=== PATIENT | female | born 1995 | race Caucasian/White ===

== ENCOUNTER 2018-02-02 13:42 | Emergency (ER) | payer OTHER ==
[2018-02-02] MEDS ORDERED: LIDOCAINE 4%/TETRACAINE 0.5%/EPI 0.18% 5 ML TOPICAL SOLN TOP ONE (14:27)
[2018-02-02] MEDS ORDERED: LIDOCAINE 1% INJ-PF (10 MG/ML) 30 ML SDV INJ ONE (14:31)
--- NOTE | 2018-02-02 14:37 | ER Document Report ---
ED Hand/Wrist Injury - General Chief Complaint: Finger Injury Stated Complaint: FINGER INJURY Time Seen by Provider: 02/02/18 13:48 Mode of Arrival: Ambulatory Information source: Patient Notes: 22-year-old female presents to ED for complaint of laceration to the left fifth finger. She states she was slicing bread at the [employer] when she sliced her finger. She denies any past medical history. She states her immunizations are up-to-date. She states she does drink maybe once a month but that is it. Patient's regular and unlabored speaking in full sentences walks with a even steady gait. TRAVEL OUTSIDE OF THE [place] IN LAST 30 DAYS: No - HPI Injury to: Small finger Onset: Just prior to arrival Where: Work Timing: Still present Quality of pain: Sharp, Throbbing Severity: Moderate Pain Level: 3 Context: Laceration - Related Data Allergies/Adverse Reactions: Penicillins Allergy (Verified 02/02/18 13:45) Past Medical History - General Information source: Patient - Social History Smoking Status: Never Smoker Cigarette use (# per day): No Chew tobacco use (# tins/day): No Smoking Education Provided: No Frequency of alcohol use: Occasional Drug Abuse: None Occupation: [employer] Lives with: Family Family History: Reviewed & Not Pertinent Patient has suicidal ideation: No Patient has homicidal ideation: No - Past Medical History Cardiac Medical History: Reports: None Pulmonary Medical History: Reports: None EENT Medical History: Reports: None Neurological Medical History: Reports: None Endocrine Medical History: Reports: Hx Diabetes Mellitus Type 2 Renal/ Medical History: Reports: None Malignancy Medical History: Reports: None GI Medical History: Reports: None Musculoskeletal Medical History: Reports None Skin Medical History: Reports None Psychiatric Medical History: Reports: Hx Depression Traumatic Medical History: Reports: None Infectious Medical History: Reports: None Surgical Hx: Negative Past Surgical History: Reports: None - Immunizations Immunizations up to date: Yes Hx Diphtheria, Pertussis, Tetanus Vaccination: Yes - 2017 Review of Systems - Review of Systems Constitutional: No symptoms reported EENT: No symptoms reported Cardiovascular: No symptoms reported Respiratory: No symptoms reported Gastrointestinal: No symptoms reported Genitourinary: No symptoms reported Female Genitourinary: No symptoms reported Musculoskeletal: No symptoms reported Skin: Other - Left fifth finger laceration tip Hematologic/Lymphatic: No symptoms reported Neurological/Psychological: No symptoms reported -: Yes All other systems reviewed and negative Physical Exam - Vital signs Vitals: Temp Pulse Resp BP Pulse Ox 98.6 F 74 20 144/62 H 97 02/02/18 13:48 02/02/18 13:48 02/02/18 13:48 02/02/18 13:48 02/02/18 13:48 Interpretation: Normal - General General appearance: Appears well, Alert - HEENT Head: Normocephalic, Atraumatic Eyes: Normal Pupils: PERRL - Respiratory Respiratory status: No respiratory distress Chest status: Nontender Breath sounds: Normal Chest palpation: Normal - Cardiovascular Rhythm: Regular Heart sounds: Normal auscultation Murmur: No - Abdominal Inspection: Normal Distension: No distension Bowel sounds: Normal Tenderness: Nontender Organomegaly: No organomegaly - Back Back: Normal, Nontender - Extremities General upper extremity: Normal inspection, Nontender, Normal color, Normal ROM , Normal temperature General lower extremity: Normal inspection, Nontender, Normal color, Normal ROM , Normal temperature, Normal weight bearing. No: Kenneth's sign - Neurological Neuro grossly intact: Yes Cognition: Normal Orientation: AAOx4 Pantera Coma Scale Eye Opening: Spontaneous Pantera Coma Scale Verbal: Oriented Pantera Coma Scale Motor: Obeys Commands Goldonna Coma Scale Total: 15 Speech: Normal Motor strength normal: LUE, RUE, LLE, RLE Sensory: Normal - Psychological Associated symptoms: Normal affect, Normal mood - Skin Skin Temperature: Warm Skin Moisture: Dry Skin Color: Normal Skin irregularity: Laceration Location of irregularity: Extremities - Left fifth finger tip Course - Vital Signs Vital signs: Temp Pulse Resp BP Pulse Ox 98.6 F 74 20 150/88 H 97 02/02/18 13:48 02/02/18 13:48 02/02/18 13:48 02/02/18 14:43 02/02/18 13:48 Procedures - Immobilization Left Finger 5th digit Time completed: 15:47 Pre-Proc Neuro Vasc Exam: Normal Immobilizer type: Finger protection Performed by: PCT Post-Proc Neuro Vasc Exam: Normal Alignment checked and good: No - Laceration/Wound Repair Left Finger 5th digit Time completed: 15:45 Wound length (cm): 3 Wound's Depth, Shape: Flap Laceration pre-procedure: Sterile PPE donned, Sterile drapes applied, Shur- Clens applied Anesthetic type: 1% Lidocaine Volume Anesthetic (mLs): 5 Wound explored: Contaminated Irrigated w/ Saline (mLs): 300 Wound Repaired With: Sutures Suture Size/Type: 4:0, Ethilon Number of Sutures: 6 Layer Closure?: No Post-procedure wound care: Sterile dressing applied, Splint applied Post-procedure NV exam normal: Yes Complications: No Discharge - Discharge Clinical Impression: Laceration of left index finger Qualifiers: Encounter type: initial encounter Damage to nail status: without damage Foreign body presence: without foreign body Qualified Code(s): S61.211A - Laceration without foreign body of left index finger without damage to nail, initial encounter Condition: Stable Disposition: HOME, SELF-CARE Instructions: Family Physicians / Practices Additional Instructions: Hand Laceration A laceration on the hand can present special problems. It may be difficult to keep the wound dry. Motion of the fingers can disturb the healing edges. Your work may involve exposure to damaging chemicals or water. Keep the wound clean and dry. If you can't keep the cut dry, undisturbed, and free of chemical exposure, please discuss this with the doctor. If any water or chemical gets onto the dressing, remove it, blot the wound dry, then apply a fresh bandage. Dressings should be changed every day. If you feel the stitches pulling as you move the hand, a splint or other form of protection is needed. If any signs of infection occur (swelling, redness, increasing tenderness, red streaks, tender lumps in the armpit, or fever), see the doctor immediately. SOAP CLEANSING: Gently wash the wound daily using a mild soap (like Ivory, Phisoderm, Neutrogena). Use warm water, rubbing gently until all debris, ooze, and crusting have been washed from the wound. Allow to dry briefly (about 10 minutes) after cleaning. Repeat this cleansing at least three times a day for the first two days and then once or twice a day. ANTIBIOTIC OINTMENT PROTECTION: Your wounds are such that dressing them is not practical or optional. After cleansing, you should apply a thin coating of antibiotic ointment ( Bacitracin, not Neosporin) to the wounds at least three times daily. This lessens infection risk, and may decrease the amount of scarring. Use a q-tip or dull butter knife, not your finger, to apply this ointment. Any debris or ooze which builds up in the ointment should be gently rubbed off with a sterile gauze pad. Harder crusting may need to be gently scrubbed off with a clean wash cloth with soap and warm water, perhaps applying a warm, wet wash cloth to the wound for ten minutes first. Development of redness, severe itching, or blistering may mean allergy to the ointment. See the doctor Doxycycline Doxycycline (Vibramycin, Doryx) is an antibiotic of the tetracycline family. This type of drug is useful for infections of the respiratory tract and genital tract, and is sometimes used for intestinal infections. Unlike most tetracyclines, doxycycline can be taken with food. It is longer acting, and (usually) less prone to side effects than regular tetracycline. Tetracycline antibiotics can stain immature teeth and SHOULD NOT BE TAKEN BY CHILDREN, NURSING MOTHERS, OR WOMEN. Tetracyclines can make you more prone to sunburn. Abdominal cramping, nausea, and diarrhea are occasional side effects. Women may experience vaginal yeast infections. Call the doctor at once if you develop hives, itching, shortness of breath , or lightheadedness. PROPHYLACTIC ANTIBIOTIC: The antibiotics which have been prescribed are designed to decrease the risk of infection. Only certain types of wounds benefit from this -- the typical cut, scrape, or burn DOES NOT require antibiotics. Of course, infection can still occur despite the use of prophylactic antibiotics. Your wound will heal with less chance of an infectious complication if you take the medication as directed. The most important dose is the FIRST dose, so don't delay filling the prescription! You have a protective splint on your finger that she can take on and off for protection to the laceration. You need to take this off 3 times a day to do your cleaning and bacitracin and dressing change. This is just a per intact you from hitting your finger on anything is not to keep your fingers straight. FOLLOW-UP CARE: Please return in __3___ days for an infection check and dressing change. Your sutures should be removed in ___10__ days. To facilitate a timely removal of your sutures, you may return to the Emergency Department at [facility]. You do not need to call for an appointment, but the best time to come in for suture removal is early in the morning. If you have been referred to another physician for follow-up care, call that physicians office for an appointment as you were instructed. If you experience a significant change in your laceration, or if you are concerned there may be an infection (swelling, redness, drainage, increasing tenderness, red streaks, tender lumps in the armpit or groin above the laceration, or fever) , return to the Emergency Department immediately re-evaluation. Prescriptions: Doxycycline Hyclate 100 mg PO BID #10 tablet Forms: Elevated Blood Pressure, Smoking Cessation Education, Return to Work
[2018-02-02 14:43] VITALS: BP 150/88
[2018-02-02] MEDS ORDERED: IBUPROFEN 800 MG TABLET PO ONE (15:35)
[2018-02-02] MEDS ORDERED: DOXYCYCLINE HYCLATE 100 MG TABLET PO ONE (15:37)
== END 2018-02-02 16:00 | disposition home or self-care (01) ==
LOC: ER 13:42
PROC: 0HQGXZZ Repair Left Hand Skin, External Approach (ICD-10-PCS; principal; 2018-02-02)
DX: S61.217A Laceration without foreign body of left little finger without damage to nail, initial encounter (principal); W26.0XXA Contact with knife, initial encounter; Y93.G9 Activity, other involving cooking and grilling; E11.9 Type 2 diabetes mellitus without complications
CPT/HCPCS: 99283; 12002; J3490 ×2

== ENCOUNTER 2018-03-18 19:45 | Emergency (ER) | payer OTHER ==
[2018-03-18 19:59] VITALS: BP 146/84
--- NOTE | 2018-03-18 20:38 | ER Document Report ---
ED Medical Screen (RME) - General Chief Complaint: Leg Pain Stated Complaint: LEG PAIN, NO INJURY Time Seen by Provider: 03/18/18 20:10 Information source: Patient, Relative TRAVEL OUTSIDE OF THE [place] IN LAST 30 DAYS: No - HPI Patient complains to provider of: leg pain Onset: Other - This 22-year-old female presents for evaluation of painful swelling behind her left knee, she notes that she has had it developed over the last month. She is not on any oral contraceptive pills does not smoke cigarettes has not had any recent surgeries or other injuries to the extremities. She denies any shortness of breath has occasional chest tightness which she believes is related to anxiety. She has got no known medical problems. Nothing is seen to make it any better nothing seems to make anywhere she has not talked to anybody about this before. - Related Data Allergies/Adverse Reactions: Penicillins Allergy (Verified 02/02/18 13:45) Past Medical History - General Information source: Patient, Relative - Social History Frequency of alcohol use: None Drug Abuse: None - Past Medical History Cardiac Medical History: Reports: Hx Hypertension Endocrine Medical History: Reports: Hx Diabetes Mellitus Type 2 Renal/ Medical History: Denies: Hx Peritoneal Dialysis Psychiatric Medical History: Reports: Hx Depression - Immunizations Immunizations up to date: Yes Hx Diphtheria, Pertussis, Tetanus Vaccination: Yes - 2017 Review of Systems - Review of Systems -: Yes All other systems reviewed and negative Physical Exam - Vital signs Vitals: Temp Pulse Resp BP Pulse Ox 98.0 F 101 H 18 146/84 H 100 03/18/18 19:58 03/18/18 19:58 03/18/18 19:58 03/18/18 19:58 03/18/18 19:58 - General General appearance: Appears well In distress: None - HEENT Head: Normocephalic Eyes: Normal Conjunctiva: Normal Pupils: PERRL Pharynx: Normal Neck: Normal - Respiratory Respiratory status: No respiratory distress Chest status: Nontender Breath sounds: Normal Chest palpation: Normal - Cardiovascular Rhythm: Regular Heart sounds: Normal auscultation Murmur: No - Abdominal Inspection: Normal Distension: No distension Tenderness: Nontender - Back Back: Normal - Extremities General upper extremity: Normal inspection, Normal ROM General lower extremity: Other - The lower extremities are symmetric, normal range of motion of the hip knees and ankles There is no tenderness to palpation in the quadriceps bilaterally There is slight swelling in the left popliteal fossa which feels cystic in nature Course - Re-evaluation Re-evalutation: 03/18/18 20:40 This 22-year-old female presents for evaluation of left lower extremity pain behind the knee. She is low risk overall for DVT given that she is on any hormone therapy has not had any truly prolonged immobility no recent surgeries no history of clots in the past does not use cigarettes. On investigation there is a palpable cystic lesion behind the left knee. Ultrasound does not demonstrate any obvious DVT, the veins of the left lower extremity are collapsible to the level of the inguinal crease. The mass on the posterior aspect of the left lower extremity is heterogeneous in nature and appears more in line with a possible lipoma or sarcoma. I did speak to the patient that this may represent a neoplasm and him encouraged her to follow-up. She agreed, will plan for discharge as this likely does not represent a DVT believe that she will be safe until followed up in short course. - Vital Signs Vital signs: Temp Pulse Resp BP Pulse Ox 98.0 F 101 H 18 146/84 H 100 03/18/18 19:58 03/18/18 19:58 03/18/18 19:58 03/18/18 19:58 03/18/18 19:58 Doctor's Discharge - Discharge Clinical Impression: Leg pain Qualifiers: Laterality: left Qualified Code(s): M79.605 - Pain in left leg Condition: Good Disposition: HOME, SELF-CARE Additional Instructions: You were seen today for the swelling behind your leg. The swelling behind her leg does not appear to be related to a blood clot. There is an area of tissue behind her left knee which is unclear what exactly is causing it. Continue to use a standard Motrin and Tylenol to help with the pain. Return in case of worsening swelling chest pain shortness of breath or other symptoms. Call this week to schedule an appointment in relation to the swelling behind the knee Referrals: VILLA GEORGE MD [ACTIVE STAFF] - Follow up as needed
== END 2018-03-18 20:42 | disposition home or self-care (01) ==
LOC: ER 19:45
DX: M79.662 Pain in left lower leg (principal); M79.89 Other specified soft tissue disorders; R07.89 Other chest pain; I10 Essential (primary) hypertension; E11.9 Type 2 diabetes mellitus without complications; Z88.0 Allergy status to penicillin
CPT/HCPCS: 99283

== ENCOUNTER 2019-08-22 16:19 | Emergency (ER) | payer OTHER ==
--- NOTE | 2019-08-22 17:34 | ER Document Report ---
ED Medical Screen (RME) - General Chief Complaint: Syncope Stated Complaint: SYNCOPE,CHEST PAIN,NUMBNESS IN LEG Time Seen by Provider: 08/22/19 17:29 Mode of Arrival: Ambulatory Information source: Patient Notes: 23-year-old female presents to ED for complaint of bilateral chest pain for the last 3 days. She states she is also had numbness and both feet for the last 3 days. She states she passed out at work today and that the first time she is ever passed out. She states she is on her menstrual cycle right now. Denies any past medical history of any medical complaints that would cause her to pass out. She states she has been eating and drinking all day. Is alert oriented respirations regular nonlabored speaking in full sentences. States she does not smoke drink or use any drugs. States she works at [employer] and has been eating and drinking. I have greeted and performed a rapid initial assessment of this patient. A comprehensive ED assessment and evaluation of the patient, analysis of test results and completion of medical decision making process will be conducted by an additional ED providers. TRAVEL OUTSIDE OF THE [place] IN LAST 30 DAYS: No - Related Data Allergies/Adverse Reactions: Penicillins Allergy (Verified 05/18/18 19:25) Past Medical History - Past Medical History Cardiac Medical History: Reports: Hx Hypertension Pulmonary Medical History: Reports: None EENT Medical History: Reports: None Neurological Medical History: Reports: None Endocrine Medical History: Reports: None Renal/ Medical History: Reports: Hx Ovarian Cysts Malignancy Medical History: Reports: None GI Medical History: Reports: None Musculoskeltal Medical History: Reports None Skin Medical History: Reports None Psychiatric Medical History: Reports: Hx Depression Traumatic Medical History: Reports: None Infectious Medical History: Reports: None Surgical Hx: Negative Past Surgical History: Reports: None - Immunizations Immunizations up to date: Yes Hx Diphtheria, Pertussis, Tetanus Vaccination: Yes - 2016 Physical Exam - Vital signs Vitals: Temp Pulse Resp BP Pulse Ox 98.0 F 67 16 145/93 H 99 08/22/19 16:38 08/22/19 16:38 08/22/19 16:38 08/22/19 16:38 08/22/19 16:38 Course - Vital Signs Vital signs: Temp Pulse Resp BP Pulse Ox 98.0 F 67 16 145/93 H 99 08/22/19 16:38 08/22/19 16:38 08/22/19 16:38 08/22/19 16:38 08/22/19 16:38
[2019-08-22] MEDS ORDERED: ASPIRIN 81 MG TABLET, CHEWABLE PO ONE (17:36)
--- NOTE | 2019-08-22 18:20 | RADIOLOGY REPORT (SQ) ---
EXAM DESCRIPTION: CHEST 2 VIEWS COMPLETED DATE/TIME: 08/22/2019 5:47 pm REASON FOR STUDY: chest pain COMPARISON: None. TECHNIQUE: Frontal and lateral radiographic views of the chest acquired. NUMBER OF VIEWS: Two view. LIMITATIONS: None. FINDINGS: LUNGS AND PLEURA: No opacities, masses or pneumothorax. No pleural effusion. MEDIASTINUM AND HILAR STRUCTURES: No masses or contour abnormalities. HEART AND VASCULAR STRUCTURES: Heart normal size. No evidence for failure. BONES: No acute findings. HARDWARE: None in the chest. OTHER: No other significant finding. IMPRESSION: NO SIGNIFICANT RADIOGRAPHIC FINDING IN THE CHEST. TECHNICAL DOCUMENTATION: JOB ID: [id number] [employer]- All Rights Reserved Reading location - IP/workstation name: [email or web address]
[2019-08-22 19:21] LABS: ABSOLUTE MONOCYTES (AUTO) 0.5 10^3/uL (0.1-1.4); ABSOLUTE NEUT (AUTO) 4.1 10^3/uL (1.7-8.2); BASOPHILS % (AUTO) 0.6 % (0-2); EOSINOPHILS % (AUTO) 0.4 % (0-6); HEMOGLOBIN 14.3 g/dL (12.0-15.5); MEAN CORPUSCULAR HEMOGLOBIN 33.6 pg (27.0-33.4); MEAN CORPUSCULAR HGB CONC 34.9 g/dL (32.0-36.0); MEAN CORPUSCULAR VOLUME 96 fl (80-97); MONOCYTES % (AUTO) 6.4 % (3-13); PLATELET COUNT 232 10^3/uL (150-450); RED BLOOD COUNT 4.26 10^6/uL (3.72-5.28); RED CELL DISTRIBUTION WIDTH 12.5 % (11.5-14.0); SEGMENTED NEUTROPHILS % (AUTO) 53.6 % (42-78); TOTAL CELLS COUNTED % (AUTO) 100 %; WHITE BLOOD COUNT 7.6 10^3/uL (4.0-10.5)
[2019-08-22 19:30] LABS: APPEARANCE,URINE SLIGHTLY-CLOUDY; BILIRUBIN,URINE NEGATIVE (NEGATIVE); COLOR,URINE YELLOW; GLUCOSE, URINE NEGATIVE (NEGATIVE); KETONES,URINE NEGATIVE (NEGATIVE); PROTEIN,URINE NEGATIVE (NEGATIVE); URINE SPECIFIC GRAVITY 1.008; UROBILINOGEN,URINE NEGATIVE mg/dL (<2.0)
[2019-08-22 19:38] LABS: ALBUMIN 4.7 g/dL (3.5-5.0); ALKALINE PHOSPHATASE 96 U/L (38-126); ANION GAP 11 (5-19); ASPARTATE AMINO TRANSFERASE 31 U/L (14-36); BILIRUBIN,TOTAL 0.5 mg/dL (0.2-1.3); BLOOD UREA NITROGEN 10 mg/dL (7-20); CALCIUM 9.5 mg/dL (8.4-10.2); CARBON DIOXIDE 29 mmol/L (22-30); CHLORIDE 100 mmol/L (98-107); GLUCOSE 77 mg/dL (75-110); POTASSIUM 3.7 mmol/L (3.6-5.0); TOTAL PROTEIN 8.3 g/dL (6.3-8.2)
[2019-08-22 19:55] LABS: URINE AMPHETAMINES SCREEN NEGATIVE; URINE BARBITURATES SCREEN NEGATIVE; URINE BENZODIAZEPINES SCREEN NEGATIVE; URINE COCAINE SCREEN NEGATIVE; URINE MARIJUANA (THC) SCREEN NEGATIVE; URINE METHADONE SCREEN NEGATIVE; URINE PHENCYCLIDINE SCREEN NEGATIVE
[2019-08-22 21:11] VITALS: BP 134/86
[2019-08-22] MEDS ORDERED: ACETAMINOPHEN 325 MG TABLET PO ONE (23:30)
--- NOTE | 2019-08-23 00:04 | ER Document Report ---
ED General - General Chief Complaint: Syncope Stated Complaint: SYNCOPE,CHEST PAIN,NUMBNESS IN LEG Time Seen by Provider: 08/22/19 17:29 Primary Care Provider: [facility] [Provider Group] - Follow up in 3-5 days RUEL GHOTRA MD [COMMUNITY BASED STAFF] - Follow up in 3-5 days Mode of Arrival: Ambulatory Notes: 23-year-old female presents for chest pain for the past 3 days and syncopal episode at work today. Patient describes chest pain as central and states it is constant and worse with exertion at work.. Patient states associated dyspnea. Patient states while she was at work today she started to feel a little lightheaded when she turned and passed out. 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 Patient states she has been eating and drinking water today. Patient states she is on her menstrual cycle. Patient denies this ever happening previously. Patient denies any nausea/vomiting. TRAVEL OUTSIDE OF THE [place] IN LAST 30 DAYS: No - Related Data Allergies/Adverse Reactions: Penicillins Allergy (Verified 05/18/18 19:25) Past Medical History - General Information source: Patient - Social History Smoking Status: Unknown if Ever Smoked Family History: Reviewed & Not Pertinent Patient has suicidal ideation: No Patient has homicidal ideation: No - Past Medical History Cardiac Medical History: Reports: Hx Hypertension Pulmonary Medical History: Reports: None EENT Medical History: Reports: None Neurological Medical History: Reports: None Endocrine Medical History: Reports: None Renal/ Medical History: Reports: Hx Ovarian Cysts Malignancy Medical History: Reports: None GI Medical History: Reports: None Musculoskeletal Medical History: Reports None Skin Medical History: Reports None Psychiatric Medical History: Reports: Hx Depression Traumatic Medical History: Reports: None Infectious Medical History: Reports: None Surgical Hx: Negative Past Surgical History: Reports: None - Immunizations Immunizations up to date: Yes Hx Diphtheria, Pertussis, Tetanus Vaccination: Yes - 2017 Review of Systems - Review of Systems Notes: Constitutional: Negative for fever. HENT: Negative for sore throat. Eyes: Negative for visual changes. Cardiovascular: Positive for chest pain. Respiratory: Positive for shortness of breath. Gastrointestinal: Negative for abdominal pain, vomiting or diarrhea. Genitourinary: Negative for dysuria. Musculoskeletal: Negative for back pain. Skin: Negative for rash. Neurological: Positive for syncope. Negative for headaches, weakness or numbness. 10 point ROS negative except as marked above and in HPI. Physical Exam - Vital signs Vitals: Temp Pulse Resp BP Pulse Ox 98.0 F 67 16 145/93 H 99 08/22/19 16:38 08/22/19 16:38 08/22/19 16:38 08/22/19 16:38 08/22/19 16:38 - Notes Notes: GENERAL: Well-appearing, well-nourished and in no acute distress. HEAD: Atraumatic, normocephalic. EYES: Pupils equal round and reactive to light, extraocular movements intact, sclera anicteric, conjunctiva are normal. NECK: Normal range of motion, supple without lymphadenopathy or JVD. LUNGS: Breath sounds clear to auscultation bilaterally and equal. No wheezes rales or rhonchi. HEART: Regular rate and rhythm without murmurs, rubs or gallops. EXTREMITIES: Normal range of motion, no pitting or edema. No clubbing or cyanosis. NEUROLOGICAL: Cranial nerves II through XII grossly intact. Normal speech, normal gait. PSYCH: Normal mood, normal affect. SKIN: Warm, Dry, normal turgor, no rashes or lesions noted. Course - Re-evaluation Re-evalutation: 08/23/19 23-year-old female presents for chest pain for 3 days and syncope today. Patient is nontoxic, well-appearing. Lungs clear to auscultation bilaterally. Regular rate and rhythm. Neuro grossly intact. PE is otherwise unremarkable. Patient's EKG shows normal sinus rhythm at 64 beats a minute. Patient's initial pain glucose was 66. Patient was given orange juice with improvement in glucose to 83. Patient's initial work-up was was reassuring. Patient's initial troponin was negative. Patient's hemoglobin is 14.3. No leukocytosis. Patient's hCG is negative. Repeat troponin and d-dimer ordered. 08/23/19 00:49 Repeat troponin is negative. D dimer is negative. Pt is not tachycardic or hypoxic. Pt given close follow up with PCP and strict return precautions. Syncope most likely secondary to hypoglycemia. Pt encouraged to eat. Discussed all results with pt. Pt voices understanding and agrees with plan of care. - Vital Signs Vital signs: Temp Pulse Resp BP Pulse Ox 98.5 F 67 16 134/86 H 99 08/22/19 21:09 08/22/19 21:09 08/22/19 16:38 08/22/19 21:09 08/22/19 21:09 - Laboratory Result Diagrams: 08/22/19 19:01 08/22/19 19:01 Laboratory results interpreted by me: 08/22/19 08/22/19 08/22/19 18:28 18:39 19:01 [facility] 33.6 H POC Glucose 66 L Total Protein Urine Blood LARGE H 08/22/19 19:01 [facility] POC Glucose Total Protein 8.3 H Urine Blood Discharge - Discharge Clinical Impression: Hypoglycemia Syncope Qualifiers: Syncope type: unspecified Qualified Code(s): R55 - Syncope and collapse Chest pain Qualifiers: Chest pain type: unspecified Qualified Code(s): R07.9 - Chest pain, unspecified Condition: Stable Disposition: HOME, SELF-CARE Instructions: Chest Pain of Unclear Cause ([facility]), Syncopal Episode ([facility]) Additional Instructions: Your work-up today was reassuring. Please make sure you eat. Please follow-up with your primary care doctor 1 of the clinics listed in 3 to 5 days. Return immediately to ER if you start having any worsening symptoms, including passing out again, worsening chest pain, worsening shortness of breath, nausea/vomiting, fever, neck pain, diarrhea, constipation, or any other symptoms that are concerning to you. Forms: Return to Work Referrals: RUEL GHOTRA MD [COMMUNITY BASED STAFF] - Follow up in 3-5 days [facility] [Provider Group] - Follow up in 3-5 days
--- NOTE | 2019-08-23 13:04 | EKG REPORT ---
SEVERITY:- BORDERLINE ECG - SINUS RHYTHM BORDERLINE T WAVE ABNORMALITIES : Confirmed by: Meenakshi Watters 23-Aug-2019 13:02:42
== END 2019-08-23 01:02 | disposition home or self-care (01) ==
LOC: ER 16:19
DX: E16.2 Hypoglycemia, unspecified (principal); R55 Syncope and collapse; R07.9 Chest pain, unspecified; R06.02 Shortness of breath; I10 Essential (primary) hypertension; Z88.0 Allergy status to penicillin
CPT/HCPCS: 36415; 71046; 80053; 80307; 81001; 82962; 83690; 84484; 84703; 85025; 85379; 93005; 93010; 99284

== ENCOUNTER 2020-01-04 00:03 | Emergency (ER) | payer OTHER ==
[2020-01-04 00:35] LABS: ABSOLUTE BASOPHILS # (AUTO) 0.1 10^3/uL (0.0-0.2); ABSOLUTE LYMPHOCYTES (AUTO) 4.5 10^3/uL (0.5-4.7); ABSOLUTE MONOCYTES (AUTO) 0.5 10^3/uL (0.1-1.4); ABSOLUTE NEUT (AUTO) 4.5 10^3/uL (1.7-8.2); BASOPHILS % (AUTO) 0.8 % (0-2); EOSINOPHILS % (AUTO) 0.1 % (0-6); HEMOGLOBIN 13.3 g/dL (12.0-15.5); LYMPHOCYTES % (AUTO) 46.9 % (13-45); MEAN CORPUSCULAR HEMOGLOBIN 33.4 pg (27.0-33.4); MEAN CORPUSCULAR VOLUME 96 fl (80-97); MONOCYTES % (AUTO) 5.6 % (3-13); PLATELET COUNT 176 10^3/uL (150-450); RED BLOOD COUNT 3.98 10^6/uL (3.72-5.28); SEGMENTED NEUTROPHILS % (AUTO) 46.6 % (42-78); TOTAL CELLS COUNTED % (AUTO) 100 %; WHITE BLOOD COUNT 9.6 10^3/uL (4.0-10.5)
[2020-01-04 00:52] LABS: ALBUMIN 4.4 g/dL (3.5-5.0); ALCOHOL 232 mg/dL (NONE DETECTED); ALKALINE PHOSPHATASE 79 U/L (38-126); ANION GAP 10 (5-19); ASPARTATE AMINO TRANSFERASE 44 U/L (14-36); BILIRUBIN,DIRECT 0.1 mg/dL (0.0-0.4); BILIRUBIN,TOTAL 0.6 mg/dL (0.2-1.3); BLOOD UREA NITROGEN 10 mg/dL (7-20); CALCIUM 8.9 mg/dL (8.4-10.2); CARBON DIOXIDE 23 mmol/L (22-30); CHLORIDE 104 mmol/L (98-107); GLUCOSE 108 mg/dL (75-110); POTASSIUM 3.6 mmol/L (3.6-5.0); TOTAL PROTEIN 7.7 g/dL (6.3-8.2)
[2020-01-04] MEDS ORDERED: NORMAL SALINE 1000 ML 1,000 ML IV ONE (01:25)
--- NOTE | 2020-01-04 01:35 | ER Document Report ---
ED General - General Chief Complaint: ETOH Abuse Stated Complaint: ANXIETY/ETOH Time Seen by Provider: 01/04/20 00:13 TRAVEL OUTSIDE OF THE [place] IN LAST 30 DAYS: No - HPI Notes: Chief complaint: Altered mental status HPI: 24-year-old female transported here via EMS for evaluation of altered mental status. Call was received to a local bar with the patient had been drinking "a lot of beer". Companions felt that she was acting strangely and reported that she possibly has a history of diabetes. EMS did a fingerstick glucose on the scene that was 93. Patient appeared very intoxicated and was transported here without further intervention. Further history is not obtainable from the patient at this time due to her altered mentation. We have telephone numbers for 2 relatives but the nursing staff is been unsuccessful and reaching either of them by telephone. I have reviewed old records for the patient here and find no objective documentation that she is diabetic or on any regular medications. She has been seen here for relatively minor complaints only. - Related Data Allergies/Adverse Reactions: Penicillins Allergy (Verified 05/18/18 19:25) Past Medical History - General Information source: Emergency Med Personnel, [facility] Records Cannot obtain history due to: Altered mental status - Social History Smoking Status: Never Smoker Frequency of alcohol use: Social Drug Abuse: None Family History: Reviewed & Not Pertinent Patient has homicidal ideation: No - Past Medical History Cardiac Medical History: Reports: Hx Hypertension Endocrine Medical History: Reports: Hx Diabetes Mellitus Type 2 Renal/ Medical History: Reports: Hx Ovarian Cysts Psychiatric Medical History: Reports: Hx Depression - Immunizations Immunizations up to date: Yes Hx Diphtheria, Pertussis, Tetanus Vaccination: Yes - 2017 Review of Systems - Review of Systems -: Yes ROS unobtainable due to patient's medical condition Physical Exam - Vital signs Vitals: Temp 98.8 F 01/04/20 00:04 - Notes Notes: GENERAL: Female patient of approximately stated age who is obtunded responding to painful stimuli. SKIN: Good turgor no rashes. HEAD: Normocephalic atraumatic. EYES: Gaze is conjugate. Patient opens eyes to painful stimuli only. Pupils are mid position equal and sluggishly reactive to light. Conjunctivae and sclerae clear. EARS: CANALS AND TMS CLEAR. NOSE: CLEAR. MOUTH: Moist mucosa. Good dentition. No stridor or edema. No drooling. THROAT: Clear. Gag intact NECK: Supple. No masses or thyromegaly. No adenopathy. Carotids 2+ without bruits. No JVD. BACK: Symmetrical without tenderness. CHEST: Respirations unlabored. Breath sounds clear and symmetrical. HEART: Regular rhythm. No murmur gallop or rub. ABDOMEN: Mildly obese. Soft nontender without masses, organomegaly or rebound. Bowel sounds normally active. No bruits. GENITALIA: Deferred. EXTREMITIES: No edema. No calf tenderness. Cap refill less than 1.5 seconds. Dorsalis pedis and posterior tibial pulses 3+ and symmetrical. NEUROLOGICAL: GCS 9 (E2 V2 M5). Obtunded. Symmetrical movement of extremities in response to painful stimuli Course - Re-evaluation Re-evalutation: 01/04/20 01:39 Patient's blood alcohol was 232 and I think this is probably the primary reason for her altered mentation. I see no evidence of significant trauma by examination or by history. We are obtaining a cath urine specimen now to get a test and urine drug screen as well as urinalysis. CBC and chemistry profile are remarkable only for minimal elevation of transaminase values. Her blood sugar was 99 in the field. It is been repeated here and is 95 by fingerstick. She is receiving normal saline IV. Her pupils do not appear constricted but under the circumstances we may also administer dose of Narcan. 01/04/20 06:07 Urine drug screen was negative. Altered mental status appears to be primarily the effect of acute alcohol intoxication. Patient has subsequently awakened and relates to us that she is a "borderline diabetic" but is not on any medication for this condition. She recalls going to a bar and drinking large amount of beer but does not remember anything after that. She attempted to call her roommate and her mother to come and get her last night but we were not able to arrange for anyone to come and take responsibility for her. She has slept overnight. We are going to repeat a blood alcohol and if this is under 100 I think she could be discharged to take a cab home with strict instructions that she is not to drive a motor vehicle within the next 72 hours. - Vital Signs Vital signs: Temp Pulse Resp BP Pulse Ox 98.8 F 108 H 16 115/65 99 01/04/20 00:04 01/04/20 00:08 01/04/20 05:01 01/04/20 05:00 01/04/20 05:01 - Laboratory Result Diagrams: 01/04/20 00:23 01/04/20 00:23 Laboratory results interpreted by me: 01/04/20 01/04/20 01/04/20 00:23 00:23 01:59 Lymph % (Auto) 46.9 H AST 44 H ALT 40 H Urine Blood SMALL H Discharge - Discharge Clinical Impression: Altered mental status, EtOH intoxication Condition: Stable Disposition: HOME, SELF-CARE Additional Instructions: Acute Alcohol Intoxication Your evaluation revealed very high levels of alcohol. You can from drinking a large amount of alcohol rapidly! Further, there's the risk of falls, traffic accidents, and fights. A high portion (about 50 percent) of the serious injuries seen in hospital emergency rooms are caused by alcohol. Alcohol overdosage is usually due to an underlying emotional or psychiatric problem. You may benefit from counselling. If "binge" drinking is an ongoing problem for you, or if you drink ANY AMOUNT of alcohol EVERY day, you most likely have a tendency to alcoholism. You should avoid alcohol totally. We can refer you for treatment. Persons with alcohol problems are often also prone to other addictions -- you should discuss any use of medications or drugs with the doctor. You should be watched at home for the next several hours by someone who has not been drinking. Get extra fluids for the next 24 hours. Call the doctor if there is repeated vomiting, increasing headache, decreasing level of alertness, or any other worsening. Do not drive a motor vehicle for the next 72 hours. Follow-up with your primary care physician. Return here as needed for new or worsening symptoms.
[2020-01-04] MEDS ORDERED: NALOXONE HCL INJ/PF 0.4 MG/1 ML SDV IV ONE (01:38)
[2020-01-04 02:19] LABS: APPEARANCE,URINE CLEAR; BILIRUBIN,URINE NEGATIVE (NEGATIVE); COLOR,URINE STRAW; GLUCOSE, URINE NEGATIVE (NEGATIVE); KETONES,URINE NEGATIVE (NEGATIVE); LEUKOCYTE ESTERASE,URINE NEGATIVE (NEGATIVE); NITRITE,URINE NEGATIVE (NEGATIVE); PROTEIN,URINE NEGATIVE (NEGATIVE); URINE SPECIFIC GRAVITY 1.004; UROBILINOGEN,URINE NEGATIVE mg/dL (<2.0)
[2020-01-04 02:33] LABS: URINE AMPHETAMINES SCREEN NEGATIVE; URINE BARBITURATES SCREEN NEGATIVE; URINE BENZODIAZEPINES SCREEN NEGATIVE; URINE COCAINE SCREEN NEGATIVE; URINE MARIJUANA (THC) SCREEN NEGATIVE; URINE METHADONE SCREEN NEGATIVE; URINE PHENCYCLIDINE SCREEN NEGATIVE
[2020-01-04 06:33] VITALS: BP 126/85
--- NOTE | 2020-01-04 09:45 | EKG REPORT ---
SEVERITY:- OTHERWISE NORMAL ECG - SINUS TACHYCARDIA : Confirmed by: Suyapa Collins MD 04-Jan-2020 09:44:46
== END 2020-01-04 07:06 | disposition home or self-care (01) ==
LOC: ER 00:03
DX: F10.129 Alcohol abuse with intoxication, unspecified (principal); Y90.7 Blood alcohol level of 200-239 mg/100 ml; R73.03 Prediabetes; I10 Essential (primary) hypertension; Z88.0 Allergy status to penicillin
CPT/HCPCS: 93005; 99284; 96361; 96374; 36415; 82962; 80307 ×2; 85025; 81025; 80053; 81001; 93010; J2310; J7030